=== PATIENT | male | born 1995 | race Caucasian/White ===

== ENCOUNTER 2019-04-24 13:47 | Emergency (ER) | payer MEDICAID ==
[~2019-04-24] VITALS: Ht 177.8 cm; Wt 72.6 kg
[2019-04-24] MEDS ORDERED: LAMICTAL100 MG PO (13:53)
[2019-04-24] MEDS ORDERED: VISTARIL 25 MG25 M1 PO (13:54)
[2019-04-24] MEDS ORDERED: NAPROSYN500 MG PO (15:16)
[2019-04-24 15:38] VITALS: BP 120/70
== END 2019-04-24 15:38 | disposition home or self-care (01) ==
LOC: M.ERS 13:47
DX: S90.121A Contusion of right lesser toe(s) without damage to nail, initial encounter (principal); W22.8XXA Striking against or struck by other objects, initial encounter; Y93.11 Activity, swimming; Y92.828 Other wilderness area as the place of occurrence of the external cause; Y99.8 Other external cause status